=== PATIENT | female | born 1985 | race Hispanic/Latino ===

== ENCOUNTER 2017-10-02 16:20 | Emergency (ER) | payer OTHER, MEDICARE ==
[2017-10-02] MEDS ORDERED: PHENAZOPYRIDINE HCL 200 MG TABLET ONE (16:32)
[2017-10-02 16:49] LABS: APPEARANCE,URINE Turbid (CLEAR); BILIRUBIN,URINE Negative (NEGATIVE); COLOR,URINE Yellow (YELLOW); GLUCOSE, URINE (UA) Negative (NEGATIVE); KETONES,URINE Negative (NEGATIVE); LEUKOCYTE ESTERASE ,URINE Negative (NEGATIVE); NITRATE,URINE Negative (NEGATIVE); OCCULT BLOOD,URINE Negative (NEGATIVE); PROTEIN,URINE Negative (NEGATIVE)
[2017-10-02 16:52] LABS: HCG,QUAL RESULT NEGATIVE (NEGATIVE)
[2017-10-02] MEDS ORDERED: KETOROLAC TROMETHAMINE 30MG/ML ONE (17:03)
[2017-10-02 17:27] LABS: RBC,URINE None Seen /HPF (0-1)
[2017-10-02 17:28] LABS: AMORPHOUS SEDIMENT,UR Moderate /LPF (None Seen); BACTERIA,URINE Rare /HPF (None Seen); SQUAMOUS EPITHELIAL CELL,UR 0-2 /LPF (0-2); WBC,URINE 0-1 /HPF (0-1)
== END 2017-10-02 17:27 | disposition home or self-care (01) ==
LOC: EDH 16:20
DX: K29.70 Gastritis, unspecified, without bleeding (principal); R30.0 Dysuria; Z72.0 Tobacco use; F43.10 Post-traumatic stress disorder, unspecified
CPT/HCPCS: 81001; 81025; 96372; 99284; J1885

== ENCOUNTER 2019-01-28 19:24 | Emergency (ER) | payer OTHER, MEDICARE | END 2019-01-28 20:05 | disposition left against medical advice (07) | LOC: EDH 19:24 | DX: R30.0 Dysuria (principal); N89.8 Other specified noninflammatory disorders of vagina; F41.9 Anxiety disorder, unspecified; F31.9 Bipolar disorder, unspecified; F43.10 Post-traumatic stress disorder, unspecified; Z88.1 Allergy status to other antibiotic agents; Z72.0 Tobacco use | CPT/HCPCS: 99281 ==

== ENCOUNTER 2019-08-15 10:53 | Emergency (ER) | payer OTHER, MEDICARE ==
[2019-08-15] MEDS ORDERED: IPRATROPIUM/ALBUTEROL SULFATE 3 ML SOLUTION IH ONE (11:28)
[2019-08-15] MEDS ORDERED: BENZONATATE 100 MG CAPSULE PO ONE (11:45)
[2019-08-15] MEDS ORDERED: DEXAMETHASONE SOD PHOSPHATE 10MG/ML 1ML VIAL ONE (11:45)
[2019-08-15] MEDS ORDERED: GUAIFENESIN-CODEINE 5 ML SYRUP ONE (11:46)
== END 2019-08-15 12:55 | disposition home or self-care (01) ==
LOC: EDH 10:53
DX: J20.9 Acute bronchitis, unspecified (principal); F41.9 Anxiety disorder, unspecified; F31.9 Bipolar disorder, unspecified; F43.10 Post-traumatic stress disorder, unspecified; Z88.1 Allergy status to other antibiotic agents; Z72.0 Tobacco use
CPT/HCPCS: 81025; 94640; 96372; 99284; J1100

== ENCOUNTER 2019-10-10 22:10 | Emergency (ER) | payer OTHER, MEDICARE ==
[2019-10-10] MEDS ORDERED: IPRATROPIUM/ALBUTEROL SULFATE 3 ML SOLUTION IH ONE (22:47)
== END 2019-10-10 23:36 | disposition home or self-care (01) ==
LOC: EDH 22:10
DX: J45.901 Unspecified asthma with (acute) exacerbation (principal); F31.9 Bipolar disorder, unspecified; J45.909 Unspecified asthma, uncomplicated; F41.9 Anxiety disorder, unspecified; Z88.1 Allergy status to other antibiotic agents; Z98.890 Other specified postprocedural states; Z87.891 Personal history of nicotine dependence
CPT/HCPCS: 71045; 81025; 94640

== ENCOUNTER 2020-01-08 03:00 | Emergency (ER) | payer OTHER, MEDICARE ==
[2020-01-08] MEDS ORDERED: LIDOCAINE HCL 2% VISCOUS 15 ML UDCUP ONE (03:41)
[2020-01-08] MEDS ORDERED: ALBUTEROL INHALER 90MCG/INH IH ONE (03:42)
[2020-01-08] MEDS ORDERED: MAG HYDROX/AL HYDROX/SIMETH ES 30 ML SUSP UDCUP ONE (03:42)
[2020-01-08] MEDS ORDERED: PREDNISONE 20 MG TABLET ONE (03:42)
[2020-01-08] MEDS ORDERED: AZITHROMYCIN 250 MG TABLET PO ONE (03:43)
== END 2020-01-08 04:52 | disposition home or self-care (01) ==
LOC: EDH 03:00
DX: J02.9 Acute pharyngitis, unspecified (principal); J45.901 Unspecified asthma with (acute) exacerbation; F41.9 Anxiety disorder, unspecified; F32.9 Major depressive disorder, single episode, unspecified; Z87.891 Personal history of nicotine dependence; Z88.5 Allergy status to narcotic agent
CPT/HCPCS: 71045; 81025

== ENCOUNTER 2020-04-09 13:27 | Emergency (ER) | payer OTHER, MEDICARE | END 2020-04-09 14:21 | disposition home or self-care (01) | LOC: EDH 13:27 | DX: J06.9 Acute upper respiratory infection, unspecified (principal); J01.80 Other acute sinusitis; F41.9 Anxiety disorder, unspecified; J45.909 Unspecified asthma, uncomplicated; F32.9 Major depressive disorder, single episode, unspecified; Z98.890 Other specified postprocedural states; Z87.891 Personal history of nicotine dependence; Z88.0 Allergy status to penicillin ==

== ENCOUNTER 2021-11-01 16:31 | Emergency (ER) | payer MEDICARE, OTHER ==
[~2021-11-01] VITALS: Ht 167.6 cm; Wt 81.6 kg
[2021-11-01 17:22] LABS: BASOPHILS % (AUTO) 0.3 % (0.0-5.0); EOSINOPHILS % (AUTO) 0.2 % (0.0-8.0); HEMATOCRIT 37.6 % (36-48); LYMPHOCYTES % (AUTO) 23.5 % (21.0-51.0); MEAN CORPUSCULAR HEMOGLOBIN 28.1 pg (27.0-33.0); MEAN CORPUSCULAR HGB CONC 32.2 g/dL (32.0-36.0); MEAN CORPUSCULAR VOLUME 87.2 fL (79-99); MONOCYTES % (AUTO) 2.8 % (3.0-13.0); NEUTROPHILS % (AUTO) 72.9 % (40.0-77.0); PLATELET COUNT (AUTO) 195 K/uL (130-400); RED BLOOD CELL COUNT(AUTO) 4.31 MIL/uL (4.00-5.50); RED CELL DISTRIBUTION WIDTH 12.6 % (11.0-15.5)
[2021-11-01] MEDS ORDERED: LIDOCAINE HCL 2% VISCOUS 15 ML UDCUP ONE (17:25)
[2021-11-01] MEDS ORDERED: MAG/ALUM/SIMETH 30 ML UDCUP ONE (17:25)
[2021-11-01] MEDS ORDERED: MAG/ALUM/SIMETH 30 ML UDCUP PO ONE (17:30)
[2021-11-01 17:32] LABS: CREATININE 0.7 mg/dL (0.5-1.5); POTASSIUM 3.7 mmol/L (3.5-5.1)
[2021-11-01 17:37] LABS: ALBUMIN 3.7 g/dL (3.5-5.0); BILIRUBIN,TOTAL 0.1 mg/dL (0.2-1.0); TOTAL PROTEIN, SERUM 7.1 g/dL (6.0-8.3)
[2021-11-01 19:00] VITALS: BP 100/50
== END 2021-11-01 19:03 | disposition home or self-care (01) ==
LOC: EDH 16:31
DX: B34.9 Viral infection, unspecified (principal); J02.9 Acute pharyngitis, unspecified; R07.89 Other chest pain; Z20.822 Contact with and (suspected) exposure to COVID-19; F31.9 Bipolar disorder, unspecified; F41.9 Anxiety disorder, unspecified; J44.9 Chronic obstructive pulmonary disease, unspecified; Z88.0 Allergy status to penicillin
CPT/HCPCS: 36415; 80053; 84484; 84703; 85025; 87635; 87804 ×2; 93005; 99284; C9803